=== PATIENT | female | born 1985 | race Caucasian/White ===

== ENCOUNTER 2016-12-17 21:38 | Emergency (ER) | payer BC ==
[~2016-12-17] VITALS: Ht 162.6 cm; Wt 68.0 kg
[2016-12-17 21:42] VITALS: BP 138/84; PULSE 82; RESP 18; TEMP 98.5; O2SAT 99
--- NOTE | 2016-12-17 22:04 | PD ---
Physical Exam Date Seen by Provider: Dec 17, 2016 Time Seen by Provider: 21:58 Narrative Pt presents c/o SOB and chest congestion. She reports being diagnosed with a respiratory infection today at an urgent care center and was prescribed steroids and a z-pack. She took the medication this afternoon. Reports cold sweats. Tobacco user. Pt states she has PCOS and does not have regular menstrual cycles. Data Data Last Documented VS Vital Signs Date Time Temp Pulse Resp B/P Pulse Ox O2 Delivery O2 Flow Rate FiO2 12/17/16 21:42 98.5 82 18 138/84 99 Room Air MDM Supervised Visit with [place]: No Scripts No Active Prescriptions or Reported Meds Mabel Burns Dec 17, 2016 22:04
[2016-12-17] MEDS ORDERED: hydrOXYzine HCL 50 MG/ML VIAL IM ONE (22:15)
--- NOTE | 2016-12-17 22:19 | PD ---
HPI Chief Complaint: Chest Pain Time Seen by Provider: 22:05 Travel History International Travel<30 days: No Contact w/Intl Traveler<30days: No Traveled to known affect area: No History of Present Illness HPI This is a 31-year-old female smoker with history of anxiety who presents for evaluation of cough. Symptom onset 3 days ago. The cough is occasionally productive with yellow sputum. Associated with a sore throat, congestion, pain in her chest reproduced when she coughs. She was seen at an urgent care center today and prescribed a prednisone taper as well as azithromycin. She reports taking several doses of prednisone today and ever since then feeling increased anxiety and discomfort. She reports that the symptoms are improving after having not had the prednisone and several hours. She also took the first day's dose of azithromycin as prescribed. No fevers or chills. No recent travel. No rash. She reports in the past she was prescribed Klonopin for anxiety but she moved here several months ago and has not been on Klonopin during that time. No history of DVT or PE. No other complaints. PFSH Past Medical History ?: Unknown LMP: IRREG Social History Alcohol Use: Yes Tobacco Use: Yes Allergies-Medications (Allergen,Severity, Reaction): Coded Allergies: No Known Allergies (Unverified , 12/17/16) Reported Meds & Prescriptions Reported Meds & Active Scripts Active No Active Prescriptions or Reported Medications Review of Systems Except as stated in HPI: all other systems reviewed are Neg Physical Exam Narrative GENERAL: This is an anxious appearing 31-year-old female who is in no acute distress. She is resting comfortably in hospital bed. SKIN: Warm and dry. HEAD: Atraumatic. Normocephalic. EYES: Pupils equal and round. No scleral icterus. No injection or drainage. ENT: No nasal bleeding or discharge. Mucous membranes pink and moist. No oral pharyngeal erythema or exudate. NECK: Trachea midline. No JVD. No lymphadenopathy. CARDIOVASCULAR: Regular rate and rhythm. No murmur appreciated. RESPIRATORY: No accessory muscle use. Clear to auscultation. Breath sounds equal bilaterally. No crackles no wheezing or rhonchi GASTROINTESTINAL: Abdomen soft, non-tender, nondistended. Hepatic and splenic margins not palpable. MUSCULOSKELETAL: No obvious deformities. No edema. NEUROLOGICAL: Awake and alert. No obvious cranial nerve deficits. Motor grossly within normal limits. Normal speech. Data Data Last Documented VS Vital Signs Date Time Temp Pulse Resp B/P Pulse Ox O2 Delivery O2 Flow Rate FiO2 12/17/16 21:42 98.5 82 18 138/84 99 Room Air Orders Electrocardiogram (12/17/16 ) Hydroxyzine Hcl Inj (Vistaril Inj) (12/17/16 22:15) Ed Urine Pregnancytest Poc (12/17/16 22:35) Chest, Single Ap (12/17/16 ) MDM Medical Decision Making Medical Screen Exam Complete: Yes Emergency Medical Condition: Yes Medical Record Reviewed: Yes Interpretation(s) EKG reveals sinus bradycardia with a rate of 55, no ischemic changes Differential Diagnosis Bronchitis, pneumonia, reactive airway disease, pleurisy, pericarditis, myocarditis, adverse reaction to prednisone Narrative Course 31-year-old female with 3 days of cough and cold symptoms presents after having started prednisone and azithromycin today. She feels that her symptoms have worsened ever since starting the prednisone. She feels anxious and she is having some discomfort in her chest when she coughs. Symptoms have improved over the course of the past few hours after having not taken her prednisone and a few hours. Certainly this could be an adverse reaction to prednisone. I don' t really see an indication for prednisone use at this time. She is having no wheezing or airway edema. Twelve-lead EKG is unremarkable. Chest x-ray reveals no evidence of pneumonia. I see no indication for antibiotics or steroids at this time. She appears to have a viral bronchitis. She reports that she was also prescribed a cough medication although she does not remember what it was called. She is encouraged to continue using the cough suppressant as needed. She is being given a dose of Vistaril here for her anxiety. Urine test was performed and is negative. She is stable for discharge. Diagnosis Primary Impression: Bronchitis Patient Instructions: Acute Bronchitis (ED), General Instructions Additional Instructions: Quit taking the prednisone any azithromycin. You have a viral bronchitis. Azithromycin will not help. Consider tobacco cessation. Stay well hydrated well-nourished. Continue using prescribed cough suppressant medication. Return for any emergent medical conditions. Med/Other Pt SpecificInfo: No Change to Meds Scripts No Active Prescriptions or Reported Meds Disposition: 01 DISCHARGE HOME Condition: Stable Ruy Keen Dec 17, 2016 22:19
--- NOTE | 2016-12-17 22:49 | RADRPT ---
EXAM DATE/TIME: 12/17/2016 22:38 [facility] COMPARISON: No previous studies available for comparison. INDICATIONS : Cough and shortness of breath. MEDICAL HISTORY : None. SURGICAL HISTORY : None. ENCOUNTER: Initial ACUITY: 4 - 6 days PAIN SCORE: 4/10 LOCATION: Bilateral upper chest FINDINGS: A single view of the chest demonstrates the lungs to be symmetrically aerated without evidence of mas s, infiltrate or effusion. The cardiomediastinal contours are unremarkable. Osseous structures are intact. CONCLUSION: Normal examination. Vasiliy Alvarado Jr., MD on December 17, 2016 at 22:47 Board Certified Radiologist. This report was verified electronically.
--- NOTE | 2016-12-18 13:45 | EKG ---
Date Performed: 12/17/2016 Time Performed: 22:20:32 PTAGE: 31 years EKG: SINUS BRADYCARDIA WITH SINUS ARRHYTHMIA BORDERLINE ECG NO PREVIOUS TRACING DOCTOR: Ramy Duncan Interpretating Date/Time 12/18/2016 13:41:48
== END 2016-12-17 23:30 | disposition home or self-care (01) ==
LOC: NEPK 21:38
DX: J40 Bronchitis, not specified as acute or chronic (principal); R05 Cough; R07.9 Chest pain, unspecified; J02.9 Acute pharyngitis, unspecified; F41.9 Anxiety disorder, unspecified; Z72.0 Tobacco use
CPT/HCPCS: 71010; 93005; 96372; 99284; J3410